=== PATIENT | male | born 1990 | race Caucasian/White ===

== ENCOUNTER 2025-04-20 08:36 | Emergency (ER) | payer BC, SELFPAY ==
--- OUTSIDE RECORDS SUMMARY | 2024-07-13 12:00 | XMS_ITS ---
Author Organization [facility] [place] Address [address] [place] [address] Care Team Providers Care Distribution A Class Lineman Name Role Phone Raina Jiang Primary Care Provider [phone] Allergies No Known Allergies REASON FOR VISIT Was helping father in law move something last night. Has been having pain to right lower back since Medications Medication SIG (Take, Route, Frequency, Duration) Notes Start Date End Date Status Zanaflex 4 MG 1 tablet at bedtime as needed Orally Once a day for 10 days 07/13/2024 Active Diclofenac Sodium 75 MG 1 tablet as need ed Orally Twice a day for 10 days 07/13/2024 Active hydroCHLOROthiazide 12.5 MG TAKE 1 CAPSU LE BY MOUTH EVERY DAY IN THE MORNING FOR 30 DAYS for 30 days Active Social History Tobacco Use: Social History Observation Description Date Details (start date - stop date) Never Smoker NA - NA Tobacco Use/Smoking Question Answer Notes Patient is a nonsmoker AUDIT-C (Standard) Question Answer Notes Did you have a drink containing alcohol in the p ast year? No Points 0 Interpretation Negative Problems Problem Type SNOMED Code ICD Code Onset Dates Problem Status W/U Status Risk Notes Problem Sciatica (98485508) Sciatica (M54.30) Active confirmed Vital Signs Weight 333.6 lbs 07/13/2024 Height 76 in 07/13/2024 Blood pressure systolic 150 mm Hg 07/13/20 24 Blood pressure diastolic 98 mm Hg 024 BMI 40.6 kg/m2 07/13/2024 Encounters Encounter Location Date Provider Diagnosis [facility] [address] [place] [address] 07/13/2024 Raina Jiang Essential (primary) hypertension I10 and Sciatica M54.30 Assessments Encounter Date Diagnosis (ICD Code) Assessment Notes Treatment Notes Treatment Clinical Notes Section Notes 07/13/2024 Essential (primary) hypertension (ICD-10 - I10) had stopped taking BP med BP check next week discussed HTN 07/13/2024 Sciatica (ICD-10 - M54.30) TOradol 60 and Kenalog 80 rest, heat or ice stretching fu if not improving Plan Of Treatment Medication Medication Name Sig Start Date Stop Date Notes Zanaflex 4 MG 1 tablet at bedtime as needed Orally Once a day for 10 days 07/13/2024 Diclofenac Sodium 75 MG 1 tablet as need ed Orally Twice a day for 10 days 07/13/2024 hydroCHLOROthiazide 12.5 MG TAKE 1 CAPSU LE BY MOUTH EVERY DAY IN THE MORNING FOR 30 DAYS for 30 days Treatment Notes Assessment Notes Essential (primary) hypertension had stopped taking BP med BP check next week discussed HTN Sciatica TOradol 60 and Kenalog 80 rest, heat or ice stretching fu if not improving Next Appt Details Follow Up: prn, Reason: Progress Notes * Fredis DAY DDOB: [birth year] (34 yo M)Acc No.[id number]:07/13/2024 Progress Note Patient: Baltazar Fredis DONOHUE Provider: Jenni Jiang ([facility]), LEGAL CLERK :1990 A ge:34 Y S ex:Male Date:07/13/2024 Address:[address] [place], [place] [id number] Check In:03:59 PM ESTCheck O ut:04:22 PM EST Subjective: * Chief Complaints: * 1 . Was helping father in law move something last night. Has been having pain to right lower back since. * HPI: D epression Screening: PHQ-2 (2015 Edition) L ittle interest or pleasure in doing things??Not at all F eeling down, depressed, or hopeless? N ot at all T otal Score 0 G eneral: picked something up lower back right side radiates down to thigh chaparrita numb heat and tylenol helped had same issue in past worse in am, gets better. * ROS: G eneral/Constitutional: Fever d enies. H eadache d enies. W eight loss?denies. O phthalmologic: Discharge d enies. E ye Pain d enies. I tching and redness d enies. E NT: Nasal discharge d enies. N elo congestion d enies.?Sore throat d enies. C ardiovascular: Chest tightness/ heavy pressure d enies. R apid heart rate d enies. S welling of extremities d enies. C hest pain d enies. ? R espiratory: Productive cough d enies. C hest pain d enies. C ough d enies. S hortness of breath d enies. W heezing d enies. ? G astrointestinal: Abdominal pain d enies. C onstipation d enies. D ecreased appetite d enies. D iarrhea d enies. N ausea d enies. V omiting?denies. G enitourinary: Urinary incontinence d enies. P ainful urination d enies. M usculoskeletal: Back pain a dmits right lower radiates down back of thigh. N key pain d enies. M uscle aches d enies. S kin: Rash d enies. S kin lesion(s) d enies. ? * Active Problem List F41.9 Anxiety disorder, un specified Modified On:02/25/2023/U Status:confirmed I10 Essential (primary) hypertension Modified On:02/25/2023/U Status:confirmed M54.30 Sciatica Modified On:07/13/2024/U Status:confirmed * Medical History: H ypertension. * Family History: F ather: alive, diagnosed with Diabetes mellitus without mention of complication, type II or unspecified type, not stated as uncontrolled. M other: , cervical ca, diagnosed with Other malignant neoplasm of unspecified site. B rother(s): alive. S ister(s): , drug overdose. D samueler(s): alive. 1 brother(s) , 1 sister(s) . 1 daughter(s) . . * Social History: T obacco Use: T obacco Use/Smoking P atient is a n onsmoker D rug/Alcohol: A CATE-C (Standard) D id you have a drink containing alcohol in the past year? N o P oints 0 I nterpretation N egative * Medications: D iscontinued hydroCHLOROthiazide 12.5 MG Capsule TAKE 1 CAPSULE BY MOUTH EVERY DAY IN THE MORNING FOR 30 DAYS , Discontinued hydrOXYzine Pamoate 25 MG Capsule TAKE 1 CAPSULE BY MOUTH TWICE A DAY NEEDED , Medication List reviewed and reconciled with the patient * Allergies: N .K.D.A. Objective: * Vitals: W t:333.6lbs, Ht: 76 in, BP:150/98mm Hg, BMI:40.6Index, Ht-cm: 193.04 cm, Wt-k.32 kg. * Examination: G eneral Examinations: GENERAL APPEARANCE: a lert and oriented, i n no acute distress. EYES: c onjunctiva normal, sclera non-icteric. NOSE: n ormal external appearance. LUNGS: c lear to auscultation bilaterally. CARDIO: r egular rate and rhythm, S1, S2 normal. ABDOMEN: s oft, nontender. MUSCULOSKELETAL s its and stands carefully. SKIN: w arm and dry. Assessment: * Assessment: 1. S ciatica - M54.30 (Primary) 2 . E ssential (primary) hypertension - I10 Plan: * Treatment: 2. E ssential (primary) hypertension Refill hydroCHLOROthiazide Capsule, 12.5 MG, TAKE 1 CAPSULE BY MOUTH EVERY DAY IN THE MORNING FOR 30 DAYS, 30 days, Refills 11. Notes: had stopped taking BP med BP check next week discussed HTN * Preventive Medicine: Screenings/Counseling: B [facility] ACTION PLAN Above Normal BMI Follow-up D ietary management education, guidance, and counseling See treatment section of progress note for complete details of management plan. * Follow Up: p rn * * Sign off status: Completed Visit Status: C HK (Check Out) true * Provider: Jenni Jiang ([facility]), LEGAL CLERK Date: Generated for Guanakito hickey/Shivani/eTransmitting on: 0 04/20/2025 08:56 AM EDT History and Physical Notes * HPI (History of Present Illness) Category Sub-Category Detail Notes Category Not es General picked something up lower back right side radiates down to thigh chaparrita numb heat and tylenol helped had same issue in past worse in am, gets better Depression Screening PHQ-2 (2015 Edition) Little interest or pleasure in doing things?: Not at all Feeling down, depressed, or hopeless?: N ot at all Total Score: 0 Examination Category Sub-Category Detail Notes Category Not es General Examinations GENERAL APPEARANCE: alert a nd oriented, in no acute distress EYES: conjunctiva normal, sclera non-icteric EARS: NOSE: normal external appe arance THROAT: CARDIO: regular rate and rhy thm, S1, S2 normal LUNGS: clear to auscultatio n bilaterally ABDOMEN: soft, nontender SKIN: warm and dry BACK: MUSCULOSKELETAL: sits and stands care fully LYMPH NODES:
--- OUTSIDE RECORDS SUMMARY | 2024-07-24 05:34 | XMS_ITS ---
Author Organization [facility] in [place] Address [address] [place] [address] Care Team Providers Care Numerical Tool Programmer Name Role Phone Raina Jiang Primary Care Provider REASON FOR VISIT Blood Pressure- LMTCB X 3 Encounters Encounter Location Date Provider Diagnosis [facility] [address] [place] [address] 07/24/2024 Raina Jiang Plan Of Treatment No Information Progress Notes * Fredsi DAY DDOB: [birth year] (34 yo M)Acc No.[id number]:07/24/2024 Patient: Baltazar Fredis DONOHUE :1990 A ge:34 Y S ex:Male Address:[address] [place] [address] * true * Date: Generated for Guanakito hickey/Shivani/eTransmitting on: 0 04/20/2025 08:56 AM EDT
--- OUTSIDE RECORDS SUMMARY | 2024-12-05 04:45 | XMS_ITS ---
Author Organization [facility] in [place] Address [address] [place] [address] Care Team Providers Care Ticker Wirer Name Role Phone Raina Jiang Primary Care Provider Allergies No Known Allergies Results Component Value Reference Range Notes COVID-19, Flu A+B IH (Not ye t reviewed by provider) Interpretation: Performing Lab: Notes/Report: COVID - FLU A - FLU B - Control + REASON FOR VISIT starting over the weekend, n/v, body aches, FORREST, and fever Medications Medication SIG (Take, Route, Fr equency, Duration) Notes Start Date End Date Status Ondansetron HCl 4 MG 1 tablet Orally BID prn for 7 days 12/05/2024 Active Social History Tobacco Use: Social History Observation Description Date Details (start date - stop date) Never Smoker NA - NA Tobacco Use/Smoking Question Answer Notes Patient is a nonsmoker AUDIT-C (Standard) Question Answer Notes Did you have a drink containing alcohol in the p ast year? No Points 0 Interpretation Negative Vital Signs Weight 313 lbs 12/05/2024 Height 76 in 12/05/2024 Blood pressure systolic 132 mm Hg 12/06/19 25 Blood pressure diastolic 80 mm Hg 025 BMI 38.1 kg/m2 12/05/2024 Encounters Encounter Location Date Provider Diagnosis [facility] [address] [place] [address] 12/05/2024 Raina Jiang Gastroenteritis K52. 9 Assessments Encounter Date Diagnosis (ICD Code) Assessment Notes Treatment Notes Treatment Clinical Notes Section Notes 12/05/2024 Gastroenteritis (ICD-10 - K52.9) feeling some better needs OWN push fluids, electrolytes fu if not improving Plan Of Treatment Medication Medication Name Sig Start Date Stop Date Notes Ondansetron HCl 4 MG 1 tablet Orally BID prn for 7 days Treatment Notes Assessment Notes Gastroenteritis feeling some better needs OWN push fluids, electrolytes fu if not improving Pending Test Test Name Order Date COVID-19, Flu A+B IH 12/05/2024 Next Appt Details Follow Up: prn, Reason: Progress Notes * Fredis DAY DDOB: [birth year] (34 yo M)Acc No.[id number]:12/05/2024 Progress Note Patient: Baltazar DONOHUE Fredis Galeano Provider: Jenni Jiang ([facility]), COMPUTER TECHNOLOGIST :1990 A ge:34 Y S ex:Male Date:12/05/2024 Address:[address] [place], [place] [id number] Check In:08:41 AM ESTCheck O ut:08:56 AM EST Subjective: * Chief Complaints: * 1 . starting over the weekend, n/v, body aches, FORREST, and fever. * HPI: D epression Screening: PHQ-2 (2015 Edition) L ittle interest or pleasure in doing things??Not at all F eeling down, depressed, or hopeless? N ot at all T otal Score 0 G eneral: feeling little better n,v,d daughter had same sx before he did able to keep food down this morning no cold sx. * ROS: G eneral/Constitutional: Fever a dmits. H eadache a dmits. W eight loss d enies. O phthalmologic: Discharge d enies. E ye Pain d enies. I tching and redness d enies. E NT: Nasal discharge d enies. N leo congestion d enies.?Sore throat d enies. C [...] d enies. D ecreased appetite d enies. N ausea a dmits. V omiting a dmits and diarrhea. G enitourinary: Urinary incontinence d enies. P ainful urination d enies. M usculoskeletal: Back pain d enies. N key pain d enies. M uscle aches d enies. S kin: Rash d enies. S kin lesion(s) d enies. ? * Active Problem List F41.9 Anxiety disorder, un specified Modified On:02/25/2023 Status:confirmed I10 Essential (primary) hypertension Modified On:02/25/2023U Status:confirmed M54.30 Sciatica Modified On:07/13/2024 Status:confirmed * Medical History: H ypertension. * Family History: F ather: alive, diagnosed with Diabetes mellitus without mention of complication, type II or unspecified type, not stated as uncontrolled. M other: , cervical ca, diagnosed with Other malignant neoplasm of unspecified site. B nidiaer(s): alive. S ister(s): , drug overdose. D marcia(s): alive. 1 brother(s) , 1 sister(s) . 1 daughter(s) . . * Social History: T obacco Use: T obacco Use/Smoking P atient is a n onsmoker D rug/Alcohol: A CATE-C (Standard) D id you have a drink containing alcohol in the past year? N o P oints 0 I nterpretation N egative * Medications: N one * Allergies: N .K.D.A. Objective: * Vitals: W t:313lbs, Ht: 76 in, BP:132/80mm Hg, BMI:38.1Index, Ht-cm: 193.04 cm, Wt-k.97 kg. * Examination: G eneral Examinations: GENERAL APPEARANCE: a lert and oriented, i n no acute distress. EYES: c onjunctiva normal, sclera non-icteric. NOSE: n ormal external appearance. LUNGS: c lear to auscultation bilaterally. CARDIO: r egular rate and rhythm, S1, S2 normal. ABDOMEN: s oft, nontender. MUSCULOSKELETAL: G ait and station normal. SKIN: w arm and dry. Assessment: * Assessment: 1Nathen Walker astroenteritis - K52.9 (Primary) Plan: * Treatment: 2. O thers L AB: COVID-19, Flu A+B IH (Collection Date & Time - 12/05/2024) * Labs: * L ab: COVID-19, Flu A+B IH (Collection Date & Time - 12/05/2024) Value Reference Range C OVID - * F KAREN A - * F KAREN B - * C ontrol + * Procedure Codes: 8 7636 SARSCOV2 & INF A&B AMP PRB, Modifiers: QW * Preventive Medicine: Screenings/Counseling: B CT ACTION PLAN Above Normal BMI Follow-up D ietary management education, guidance, and counseling * Follow Up: p rn * * Electronically signed by Monica Jiang , LEAH, HIGHWAY LANDSCAPE [email or web address] on 12/07/2024 at 12:27 PM EST Sign off status: Completed Visit Status: C HK (Check Out) true * Provider: Jenni Jiang ([facility]), COMPUTER TECHNOLOGIST Date: 0 12/05/2024 Generated for Guanakito hickey/Shivani/eTransmitting on: 0 04/20/2025 08:56 AM EDT History and Physical Notes * HPI (History of Present Illness) Category Sub-Category Detail Notes Category Not es General feeling little better n,v,d daughter had same sx before he did able to keep food down this morning no cold sx Depression Screening PHQ-2 (2015 Edition) Little interest [...] nontender SKIN: warm and dry BACK: MUSCULOSKELETAL: Gait and station nor mal LYMPH NODES:
[2025-04-20 08:43] VITALS: BP 147/108; PULSE 90; TEMP 36.6; O2SAT 98; BMI 37.9
--- OUTSIDE RECORDS SUMMARY | 2025-04-20 08:56 | XMS_ITS | Clinical Summary ---
Author Organization [employer] [facility] tem Address [id number] [address] [place] [address] Care Team Providers Care Cartridge Assembling Machine Adjuster Name Role Phone Chely Hinojosa STATISTICIAN-[employer] CONSULTANT Primary Care Provi shaun Allergies No known active allergies Medications lisinopriL (PRINIVIL,ZESTRIL ) 10 mg tabletIndications :Essential hypertension TAKE 1 TABLET BY MOUTH EVERY DAY 30 tablet 1 04/21/2020 Active Active Problems Problem Noted Date Diagnosed Date Essential hypertension 02/27/2020 Screening for lipid disorders 02/27/2020 Overweight 02/27/2020 Family History Medical History Relation Name Comments Diabetes Father Hypertension Father Diabetes Paternal Grandmother Relation Name Status Comments Father Paternal Grandmother Social History Tobacco Use Types Packs/Day Years Used Date Smoking Tobacco: Never Smokeless Tobacco: Never Alcohol Use Standard Drinks/Week Comments Not Currently 0 (1 standard drink = 0.6 oz pur e alcohol) PHQ-2 Answer Date Recorded Total Score 0 02/27/2020 Childcare Answer Date Recorded Childcare Unknown 03/15/2019 Employment Answer Date Recorded Employment Unknown 03/15/2019 Purpose - Life Answer Date Recorded Purpose and direction in life Unknown Sex and Gender Information Value Date Recorded Sex Assigned at Not on file Legal Sex Male 11:45 AM EDT Gender Identity Not on file Sexual Orientation Not on file Last Filed Vital Signs Vital Sign Reading Time Taken Comments Blood Pressure 142/98 02/27/2020 9:07 AM EDT Pulse 100 02/27/2020 9:07 AM EDT Temperature 36.7 C (98.1 F) 02/27/2020 9:07 AM EDT Respiratory Rate 16 02/27/2020 9:07 AM EDT Oxygen Saturation 95% 02/27/2020 9:07 AM EDT Inhaled Oxygen Concentration - - Weight 145.6 kg (321 lb) 02/27/2020 9:07 AM EDT Height 190.5 cm (6' 3 ) 02/27/2020 9:07 AM EDT Body Mass Index 40.12 02/27/2020 9:07 AM EDT Plan of Treatment Health Maintenance Due Date Last Done Comments Depression Screening 2004 Tobacco Screening 2004 Adult BMI Screening 02/21/2010 Influenza Vaccine 06/04/2025 DTaP,Tdap and Td Vaccines (7 - Td or Tdap) 04/16/2029 04/16/2019, 02/27/2010, 04/08/1994, Additional history exists Medical Devices Not on file Insurance Care Teams Cartridge Assembling Machine Adjuster Relationship Specialty Start Date End Date Chely Hinojosa, ANTHONY-[employer] CONSULTANT [address], [place] [address] PCP - General Family Medicine 02/27/20
--- OUTSIDE RECORDS SUMMARY | 2025-04-20 08:56 | XMS_ITS | Patient Health Record ---
Author Organization [facility] in [place] Address [address] [place] [address] Care Team Providers Care Offset Second Press Operator Name Role Phone Raina Jiang Primary Care Provider Allergies No Known Allergies Results Component Value Reference Range Notes COVID-19, Flu A+B IH (Not ye t reviewed by provider) Interpretation: Performing Lab: Notes/Report: COVID - FLU A - FLU B - Control + Reason For Referral No Information Medications Medication SIG (Take, Route, Fr equency, Duration) Notes Start Date End Date Status Ondansetron HCl 4 MG 1 tablet Orally BID prn for 7 days 12/05/2024 Active Social History Tobacco Use: Social History Observation Description Date Details (start date - stop date) Never Smoker NA - NA Tobacco Use/Smoking Question Answer Notes Patient is a nonsmoker Alcohol Screen (Audit-C) Question Answer Notes Did you have a drink containing alcohol in the p ast year? No Points 0 Interpretation Negative AUDIT-C (Standard) Question Answer Notes Did you have a drink containing alcohol in the p ast year? No Points 0 Interpretation Negative Problems Problem Type SNOMED Code ICD Code Onset Dates Problem Status W/U Status Risk Notes Problem 56828614 Essential (primary) hypertension (I10) Active confirmed Problem 30589789 Anxiety disorder , unspecified (F41.9) Active confirmed Problem Sciatica (90326837) Sciatica (M54.30) Active confirmed Vital Signs Blood pressure diastolic 80 mm Hg 12/05/2024 Height 76 in 12/05/2024 Blood pressure systolic 132 mm Hg 12/05/2024 Weight 313 lbs 12/05/2024 BMI 38.1 kg/m2 12/05/2024 Encounters Encounter Location Date Provider Diagnosis [facility] [address] [place] [address] 07/13/2024 Raina Jiang Essential (primary) hypertension I10 and Sciatica M54.30 [facility] [address] [place] [address] 12/05/2024 Raina Jiang Gastroenteritis K52. 9 [facility] [address] [place] [address] 07/24/2024 Raina Jiang Assessments Encounter Date Diagnosis (ICD Code) Assessment Notes Treatment Notes Treatment Clinical Notes Section Notes 07/13/2024 Essential (primary) hypertension (ICD-10 - I10) had stopped taking BP med BP check next week discussed HTN 07/13/2024 Sciatica (ICD-10 - M54.30) TOradol 60 and Kenalog 80 rest, heat or ice stretching fu if not improving 12/05/2024 Gastroenteritis (ICD-10 - K52.9) feeling some better needs OWN push fluids, electrolytes fu if not improving Plan Of Treatment Pending Test Test Name Order Date COVID-19, Flu A+B IH 12/05/2024 Insurance Providers Payer Name Payer Address Payer Phone Subscriber Number Group Number Insured Name Patient Relationship to Insured Coverage Start Date Coverage End Date [employer]ESS PPO PLUS LOCAL PLAN [address] [place] [phone] [id number] Fredis Loja Self - patient is the insured 3 Medical (General) History Medical History History ICD Code Hypertension 401.9
--- NOTE | 2025-04-20 08:59 | ED_ITS ---
HPI HPI - General Adult General Chief complaint: Back Pain/Injury Stated complaint: LOW BACK PAIN Time Seen by Provider: 04/20/25 08:52 Source: patient Mode of arrival: walk-in Limitations: no limitations History of Present Illness HPI narrative: 35-year-old male presents for lower back pain, on the left side. He did not fall or injure it. He states his back has been tight for the last week and when he went to get up off the floor yesterday he felt it get worse. He has a history of back issues and had x-rays a few months ago that were negative. He states that when this happens usually a shot of steroid helps. He could not get into see his PCP so he came here instead. No radiation of the pain. Related Data Previous Rx's ?Medication ?Instructions ?Recorded ibuprofen 800 mg tablet 800 mg PO Q8H PRN pain #20 t abs 04/20/25 methocarbamol 750 mg tablet 750 mg PO Q6H PRN pain #20 tabs 04/20/25 Allergies Allergy/AdvReac Type Severity Reaction Status Date / Time No Known Drug Allergies Allergy Verified 04/20/25 08:42 Opioid HPI Opioid Management Most Recent Opioid Data: Last Pain Scale 8 Today, 08:43 Review of Systems ROS Narrative A ten point review of systems is negative except as noted above. PFSH PFSH Social History Little interest or pleasure in doing things: not at all Feeling down, depressed, or hopeless: not at all Exam Narrative Exam Narrative: Nurses note and vital signs reviewed and patient is not hypoxic. General: The patient appears well and in no apparent distress. Patient is resting comfortably on cart. Skin: Warm, dry, no pallor noted. There is no rash noted. Head: Normocephalic, atraumatic Eye: Normal conjunctiva, no drainage Ears, Nose, Mouth, and Throat: oral mucosa is moist. Nares patent. Cardiovascular: Regular Rate and Rhythm Respiratory: Patient is in no distress, no accessory muscle use, lungs are clear to auscultation, no wheezing, rales or rhonchi Back: No bruise or rash or focal area of tenderness to palpation. GI: Soft and nontender Musculoskeletal: The patient has no evidence of calf tenderness, no pitting edema, symmetrical pulses noted bilaterally Neurological: A&O, normal speech; motor strength intact in his lower extremities Psychiatric: Cooperative Constitutional Vital Signs, click to edit/add: Last Vital Signs Temp 97.8 F 04/20/25 08:43 Pulse 90 04/20/25 08:43 Resp 18 04/20/25 08:43 BP 147/108 H 04/20/25 08:43 Pulse Ox 98 04/20/25 08:43 O2 Del Method Room Air 04/20/25 08:43 Course Vital Signs Vital signs: Vital Signs Temperature 97.8 F 04/20/25 08:43 Pulse Rate 90 04/20/25 08:43 Respiratory Rate 18 04/20/25 08:43 Blood Pressure 147/108 H 04/20/25 08:43 Pulse Oximetry 98 04/20/25 08:43 Oxygen Delivery Method Room Air 04/20/25 08:43 Temperature 97.8 F 04/20/25 08:43 Pulse Rate 90 04/20/25 08:43 Respiratory Rate 18 04/20/25 08:43 Blood Pressure 147/108 H 04/20/25 08:43 Pulse Oximetry 98 04/20/25 08:43 Oxygen Delivery Method Room Air 04/20/25 08:43 Medical Decision Making MDM Narrative Medical decision making narrative: He was offered x-rays but does not feel that he needs them. He was given IM Solu-Medrol and prescribed methocarbamol and ibuprofen. Treatment diagnosis and follow-up were discussed with the patient. Differential Diagnosis Differential Diagnosis: Muscle strain, degenerative disc disease Discharge Plan Discharge Chief Complaint: Back Pain/Injury Clinical Impression: Strain of lumbar region Patient Disposition: Home, Self-Care Time of Disposition Decision: 08:57 Condition: Good Mode of Transportation: Private Vehicle Prescriptions / Home Meds: New ibuprofen 800 mg tablet 800 mg PO Q8H PRN (Reason: pain) Qty: 20 0RF methocarbamol 750 mg tablet 750 mg PO Q6H PRN (Reason: pain) Qty: 20 0RF Print Language: Nicaraguan Instructions: Low Back Strain (ED) Referrals: ALBERT OMALLEY [Primary Care Provider, Family Practice] - 1 week
[2025-04-20] MEDS: METHYLPREDNISOLONE SOD SUCC PF 125 MG/2 ML VIAL IM (09:08)
== END 2025-04-20 09:20 | disposition home or self-care (01) ==
PROVIDERS: Emergency Provider Emergency Medicine; PCP Nurse Practitioner Family
DX: S39.012A Strain of muscle, fascia and tendon of lower back, initial encounter (principal); X58.XXXA Exposure to other specified factors, initial encounter
CPT/HCPCS: 96372; 99284; J2919